=== PATIENT | female | born 1945 | race Caucasian/White ===

== ENCOUNTER 2021-05-25 08:18 | Day surgery (SDC) | payer MEDICARE, BC ==
[~2021-05-25] VITALS: Ht 157.5 cm; Wt 59.0 kg
[~2021-05-25 08:18] MED LIST: ATOR40TA PO; Amlodipine Bes2.5 MG PO; Aspir 8181 MG PO; CALCIUM 500 MG1 EAC2 PO; EUTHYROX88 MCG PO; IBUP800 PO; KRILL OIL500 MG PO
[2021-05-25] MEDS ORDERED: OMEP20ER (08:45)
--- NOTE | 2021-05-25 08:48 | NUR ---
05/25/21 0848 Amanda Madera TETRACAINE AND PLEDGET PLACED IN LEFT EYE
== END 2021-05-25 09:58 | disposition home or self-care (01) ==
LOC: ORSCSDS 08:18
PROVIDERS: Ophthalmology
PROC: 08RK3JZ Replacement of Left Lens with Synthetic Substitute, Percutaneous Approach (ICD-10-PCS; principal; 2021-05-25 09:30)
DX: H25.12 Age-related nuclear cataract, left eye (principal); I10 Essential (primary) hypertension; Z79.899 Other long term (current) drug therapy
CPT/HCPCS: J2001; J2250; J3010; J3301; J7040; V2632

== ENCOUNTER 2021-07-13 07:15 | Day surgery (SDC) | payer MEDICARE, BC ==
[~2021-07-13] VITALS: Ht 157.5 cm; Wt 60.2 kg
[~2021-07-13 07:15] MED LIST changes: +OMEP20ER
--- NOTE | 2021-07-13 07:45 | NUR ---
07/13/21 0745 Roxana Reid TETRACAINE APPLIED INTO RIGHT EYE AT 0742 AND PLEDGET APPIED PER ORDERS AT 0713
== END 2021-07-13 09:15 | disposition home or self-care (01) ==
LOC: ORSCSDS 07:15
PROVIDERS: Ophthalmology
PROC: 08RJ3JZ Replacement of Right Lens with Synthetic Substitute, Percutaneous Approach (ICD-10-PCS; principal; 2021-07-13 08:30)
DX: H25.11 Age-related nuclear cataract, right eye (principal); I10 Essential (primary) hypertension; E03.9 Hypothyroidism, unspecified; E78.00 Pure hypercholesterolemia, unspecified; Z79.899 Other long term (current) drug therapy; Z79.82 Long term (current) use of aspirin
CPT/HCPCS: J2001; J2250; J3010; J3301; J7040; V2632

== ENCOUNTER 2023-09-05 01:54 | Day surgery (SDC) | payer MEDICARE, BC ==
[~2023-09-05 01:54] MED LIST changes: +PROCTOSOL-HC28.3510 PR; +TRAM50 PO
== END 2023-09-05 22:41 | disposition home or self-care (01) ==
LOC: WOUND 01:54
DX: S81.811D Laceration without foreign body, right lower leg, subsequent encounter (principal); I87.2 Venous insufficiency (chronic) (peripheral); T14.8XXS Other injury of unspecified body region, sequela; Z88.5 Allergy status to narcotic agent; X58.XXXD Exposure to other specified factors, subsequent encounter
CPT/HCPCS: A9270; G0463

== ENCOUNTER 2023-09-12 02:11 | Day surgery (SDC) | payer MEDICARE, BC | END 2023-09-12 22:50 | disposition home or self-care (01) | LOC: WOUND 02:11 | DX: T14.8XXS Other injury of unspecified body region, sequela (principal); I87.2 Venous insufficiency (chronic) (peripheral); X58.XXXS Exposure to other specified factors, sequela; S81.801D Unspecified open wound, right lower leg, subsequent encounter | CPT/HCPCS: 93970; A9270; G0463 ==

== ENCOUNTER 2023-09-19 03:16 | Day surgery (SDC) | payer MEDICARE, BC | END 2023-09-19 23:06 | disposition home or self-care (01) | LOC: WOUND 03:16 | DX: S81.801D Unspecified open wound, right lower leg, subsequent encounter (principal); I87.2 Venous insufficiency (chronic) (peripheral); T14.8XXD Other injury of unspecified body region, subsequent encounter | CPT/HCPCS: G0463 ==

== ENCOUNTER 2023-09-27 04:28 | Day surgery (SDC) | payer MEDICARE, BC | END 2023-09-27 23:10 | disposition home or self-care (01) | LOC: WOUND 04:28 | DX: S81.801D Unspecified open wound, right lower leg, subsequent encounter (principal); W22.8XXD Striking against or struck by other objects, subsequent encounter; T14.8XXS Other injury of unspecified body region, sequela; I87.2 Venous insufficiency (chronic) (peripheral) | CPT/HCPCS: G0463 ==

== ENCOUNTER 2023-10-11 04:49 | Day surgery (SDC) | payer MEDICARE, BC | END 2023-10-11 22:58 | disposition home or self-care (01) | LOC: WOUND 04:49 | DX: S81.811D Laceration without foreign body, right lower leg, subsequent encounter (principal); W22.09XD Striking against other stationary object, subsequent encounter; T14.8XXS Other injury of unspecified body region, sequela | CPT/HCPCS: A9270; G0463 ==

== ENCOUNTER 2023-11-15 02:02 | Day surgery (SDC) | payer MEDICARE, BC | END 2023-11-15 23:02 | disposition home or self-care (01) | LOC: WOUND 02:02 | DX: S81.801D Unspecified open wound, right lower leg, subsequent encounter (principal); W22.09XD Striking against other stationary object, subsequent encounter; I87.2 Venous insufficiency (chronic) (peripheral) | CPT/HCPCS: G0463 ==

== ENCOUNTER → 2024-01-22 | Outpatient (CLI) | payer MEDICARE, BC | END | disposition home or self-care (01) | LOC: LAB 12:35 → LAB SHORT 12:35 | DX: C44.311 Basal cell carcinoma of skin of nose (principal) | CPT/HCPCS: 88305 ==

== ENCOUNTER → 2024-05-30 | Outpatient (CLI) | payer MEDICARE, BC ==
[2024-05-30 19:55] LABS: Bacterial Vaginosis PCR Negative (NEGATIVE); Candida Group, PCR NOT DETECTED (NOT DETECT); Candida glabrata-krusei, PCR NOT DETECTED (NOT DETECT)
== END ==
LOC: LAB SHORT 17:15 → LAB 17:15
PROVIDERS: Physician Assistant
DX: B37.31 Acute candidiasis of vulva and vagina (principal)
CPT/HCPCS: 87481; 87661; 87801

== ENCOUNTER 2025-09-09 00:11 | Day surgery (SDC) | payer MEDICARE, BC ==
[2025-09-09] MEDS ORDERED: Lidocaine HCl 4% Cream 5 GM ONE (07:47)
== END 2025-09-09 23:39 | disposition home or self-care (01) ==
LOC: WOUND 00:11
DX: S81.812A Laceration without foreign body, left lower leg, initial encounter (principal); I87.2 Venous insufficiency (chronic) (peripheral); I73.9 Peripheral vascular disease, unspecified; Z88.5 Allergy status to narcotic agent; W22.09XA Striking against other stationary object, initial encounter
CPT/HCPCS: A9270; G0463

== ENCOUNTER 2025-09-16 00:16 | Day surgery (SDC) | payer MEDICARE, BC | END 2025-09-16 23:00 | disposition home or self-care (01) | LOC: WOUND 00:16 | DX: L97.822 Non-pressure chronic ulcer of other part of left lower leg with fat layer exposed (principal); I87.2 Venous insufficiency (chronic) (peripheral); I73.9 Peripheral vascular disease, unspecified | CPT/HCPCS: G0463 ==

== ENCOUNTER 2025-09-23 01:06 | Day surgery (SDC) | payer MEDICARE, BC | END 2025-09-23 23:00 | disposition home or self-care (01) | LOC: WOUND 01:06 | DX: S81.812A Laceration without foreign body, left lower leg, initial encounter (principal); I87.2 Venous insufficiency (chronic) (peripheral); I73.9 Peripheral vascular disease, unspecified; W22.09XA Striking against other stationary object, initial encounter | CPT/HCPCS: G0463 ==

== ENCOUNTER 2025-10-06 09:15 | Day surgery (SDC) | payer MEDICARE, BC ==
[2025-10-06] MEDS ORDERED: Lidocaine HCl 4% Cream 5 GM ONE (09:18)
== END 2025-10-06 23:00 | disposition home or self-care (01) ==
LOC: WOUND 09:15
DX: L97.822 Non-pressure chronic ulcer of other part of left lower leg with fat layer exposed (principal); I87.2 Venous insufficiency (chronic) (peripheral); I73.9 Peripheral vascular disease, unspecified; I10 Essential (primary) hypertension
CPT/HCPCS: A9270; G0463